=== PATIENT | female | born 1970 | race Caucasian/White ===

== ENCOUNTER → 2016-06-20 | Outpatient (CLI) | payer BC ==
[~2016-06-20] MED LIST: ADVIL DPS200 MG PO; ATIVAN-DPS0.5 MG PO; COLACE-DPS100 MG PO; FEOSOL-DPS325 MG PO; MOTRIN-DPS400 MG PO; PERCOCET 5-3251 EACH PO
== END | disposition home or self-care (01) ==
LOC: PTH.S 08:43
DX: Z01.812 Encounter for preprocedural laboratory examination (principal)

== ENCOUNTER 2016-06-30 05:36 | Observation (INO) | payer BC ==
[~2016-06-30] VITALS: Ht 172.7 cm; Wt 84.5 kg
[2016-07-02] MEDS ORDERED: ATIVAN-DPS0.5 MG PO (06:26)
[2016-07-02] MEDS ORDERED: PERCOCET 5-3251 EACH PO (06:27)
[2016-07-02] MEDS ORDERED: MOTRIN-DPS400 MG PO (06:27)
[2016-07-02] MEDS ORDERED: ADVIL DPS200 MG PO (06:27)
[2016-07-02] MEDS ORDERED: COLACE-DPS100 MG PO (06:27)
[2016-07-02] MEDS ORDERED: FEOSOL-DPS325 MG PO (06:27)
--- NOTE | 2016-07-28 09:14 | HP ---
ADMIT: 06/30/2016 RM/LOC: W.08 [facility] MR#: [id number] [address] [address] MEGHAN BARBER [address] [place] [address] Pre-OP History and Physical SEX: F AGE: 46 : 1970 DATE OF SERVICE: HISTORY OF PRESENT ILLNESS: The patient is a 46-year-old, 3, para 3, who has had worsening menorrhagia over the past several years. The patient presented with complaints of very heavy vaginal bleeding in March of 2016. The patient states that she often has to wear several pads at once and changes frequently less than every hour due to heavy flow. The patient also states that her cycles range from 21 to 28 days, and it has been worsening in the past year. The patient states that the bleeding had come to the point where she did not like to leave the house during her periods and so wishes to pursue treatment options. The patient had endometrial biopsy performed which was benign. An ultrasound of the pelvis was obtained, which showed the uterus measuring 11.2 x 7.0 x 8.2 cm with two dominant fibroids and one anterior 4.9 x 4.6 x 4.5, and a posterior fibroid 5.6 x 5.4 x 4.3. Endometrial stripe was 3 mm, and the ovaries appeared within normal limits. After reviewing treatment options in light of the 2 enlarged fibroids, decision was made to proceed with total laparoscopic hysterectomy. The patient had a family history of ovarian cancer in the mother and maternal aunt. Genetic testing was obtained using the EGEN genetic test and no known genes that were associated with ovarian cancer were found. PAST MEDICAL HISTORY: 1. History of menorrhagia. 2. History of positive HPV of the cervix. PAST SURGICAL HISTORY: Tonsillectomy. CURRENT MEDICATIONS: Ativan 0.5 mg as needed for sleep. ALLERGIES: NO KNOWN MEDICAL ALLERGIES. FAMILY HISTORY: Mother and maternal aunt with ovarian cancer and mother with rheumatoid arthritis. SOCIAL HISTORY: The patient is . She denies any alcohol, tobacco, or drug use. REVIEW OF SYSTEMS: GENERAL: The patient is feeling well. She does complain of fatigue. She denies any unexpected weight changes, fever, or chills. CARDIOVASCULAR: No chest pain, palpitations, or dyspnea with exertion. RESPIRATORY: No cough, wheeze, or shortness of breath. GASTROINTESTINAL: No nausea, vomiting, diarrhea, or constipation. FEMALE GENITOURINARY: Menorrhagia and irregular menstrual periods as noted above. She denies any urinary complaints. MUSCULOSKELETAL: No joint pain or muscle weakness. PHYSICAL EXAMINATION: VITAL SIGNS: Weight 183 pounds. Height 68 inches, BMI 27.5. Blood pressure 120/60. GENERAL: The patient is alert and oriented, in no acute distress. ADMIT: 06/30/2016 RM/LOC: W.08 [facility] MR#: [id number] [address] [place] [id number] MEGHAN BARBER [address] [place] [address] Pre-OP History and Physical SEX: F AGE: 46 : 1970 HEART: Regular rate and rhythm without murmurs, gallops, or rubs. LUNGS: Clear to auscultation bilaterally. ABDOMEN: Soft, nontender, and nondistended. Positive bowel sounds. EXTREMITIES: No edema. No calf tenderness. FEMALE GENITOURINARY: Normal external female genitalia. Normal Bartholin's, [place]'s, and urethral glands. The vagina appears estrogenized without lesions. Cervix appears normal. Bimanual examination reveals the uterus to be generally enlarged and adnexa is not palpable. ASSESSMENT: A 46-year-old female with menorrhagia with irregular cycle and 2 large uterine leiomyoma. PLAN: After reviewing treatment options, the patient desires definitive surgical management with hysterectomy. The risks, benefits, and alternatives of surgery including, but not limited to the risk of bleeding, possibly requiring blood transfusion, risk of infection, and the risk of injury to bowel or bladder have been discussed with the patient, and she agrees to proceed. Heavenly Mcqueen MD/ mer[place]ez JOB #: [id number] CC: Heavenly Mcqueen, Attending Physician Abril Matthews, Family Physician
--- NOTE | 2016-07-28 09:14 | OR ---
ADMIT: 06/30/2016 RM/LOC: 618 [facility] MR#: [id number] [facility] [address] [place], [place] [address] MEGHAN BARBER [address] [place] [address] Operative/Delivery Room Report SEX: F AGE: 46 : 1970 SURGERY DATE: 06/30/2016 SURGEON: Heavenly Mcqueen MD PROCEDURE: Total laparoscopic hysterectomy with bilateral salpingectomy and cystoscopy. DRUM OPERATOR: Page Shah MD PREOPERATIVE DIAGNOSES: 1. Menorrhagia. 2. Uterine leiomyoma. POSTOP DIAGNOSES: 1. Menorrhagia. 2. Uterine leiomyoma. FINDINGS: 1. Markedly enlarged uterus with multiple leiomyoma. 2. Normal appearing tubes and ovaries bilaterally. 3. Normal cystoscopy findings. ESTIMATED BLOOD LOSS: 550 mL. ANESTHESIA: General. COMPLICATIONS: None. INDICATIONS FOR PROCEDURE: The patient is a 46-year-old female who has had worsening menorrhagia. Endometrial biopsy was benign, however, the patient was noted to have multiple fibroids, 2 largest being approximately 5 cm in diameter, anteriorly and posteriorly. After reviewing treatment options, the patient desired definitive surgical management with hysterectomy. The risks, benefits, and alternatives of surgery have been reviewed and she wished to proceed. The patient also desired ovarian preservation at the time of surgery. DESCRIPTION OF PROCEDURE: The patient was taken to the operating room where general anesthesia was obtained without difficulty. The patient placed in dorsal lithotomy position, Yellofin stirrups, and prepped and draped in the usual sterile fashion. A Chaves catheter was placed prior to surgery. A weighted speculum was placed in the patient's vagina and a right angle retractor was used for visualization of the cervix. The anterior lip of the cervix was grasped with a single-tooth tenaculum. The cervix was noted to be quite large. The VCare device was inserted and the largest VCare cup was inserted around the cervix as well as possible. This was tightened down and left in place and all other instruments removed from the patient's vagina. Gloves were changed and attention was turned to the patient's abdomen. A 5-mm ADMIT: 06/30/2016 RM/LOC: 618 [facility] MR#: [id number] [address] [address] MEGHAN BARBER [address] [place] [address] Operative/Delivery Room Report SEX: F AGE: 46 : 1970 infraumbilical incision was made with scalpel after local infiltration of 0.25% Marcaine. A Veress needle was then inserted into this port. The patient's abdomen was insufflated to a patient pressure of 15 mmHg. Good gas flow and low patient opening pressure were noted with insufflation. The 5 mm trocar was then placed into this incision and intraperitoneal placement was assured with the camera. The pelvis was inspected. The patient was noted to have a very markedly enlarged uterus, which filled most of the pelvis. Tubes and ovaries bilaterally appeared normal. The patient's ureters were able to be identified and were noted to be away from the operating field. Attention was first turned to the patient's left side. The left tube was identified and followed out to its fimbriated end. The left mesosalpinx was sequentially coagulated and transected with the Thunderbeat device. At this point, the round ligament was able to be breeched, this was coagulated and transected with Thunderbeat device as well. The anterior leaf of the broad ligament was taken down and taken to the midline. In a similar fashion, the posterior leaf of the broad ligament was taken down as much as possible. The uterine vessels were identified and coagulated as much as possible. At this point, attention was then turned to the patient's right side. The right tube was identified and followed to the fimbriated end. The mesosalpinx was sequentially coagulated and transected using the Thunderbeat device. The round ligament was identified, coagulated, and transected as well. The anterior leaf of the broad ligament was then taken down to the midline as was the posterior leaf. At this point, the uterine vessels were able to be identified. They were then coagulated and transected. The anterior and posterior fibroids were noted to be in a position that made visualization of the cervix and the VCare cup rather difficult. The VCare cup was eventually located and the Thunderbeat device was used to sequentially amputate the cervix from the vaginal mucosa. In the process of this procedure, the cervix came out of VCare device. The decision was made to proceed to remove the rest of the vaginal tissue from the cervix vaginally. The patient was noted to be in the dorsal lithotomy position and the long weighted speculum was then placed in the posterior cul-de-sac. There was noted to be an area to the patient's right side of the vagina that was still attached to the cervix. This was clamped, transected, and suture ligated with 0 Vicryl with a series of Conrado clamps. The uterus was then completely removed from the vagina in this manner. The uterus was then able to be delivered with some difficulty through the vagina due to its very large size. At this point, the vaginal mucosa was then closed in a series of figure-of- eight stitches of 0 Vicryl. This was performed vaginally. Good hemostasis of the vaginal incision was noted. There was an area of the vaginal mucosa that had been transected with the Thunderbeat device and this was made hemostatic with a [id number] stitch of 0 Vicryl. At this point, attention was again turned to the patient's abdomen. All pedicles appeared hemostatic and the vaginal cuff appeared hemostatic as well. The 11 mm incision on the patient's right side was closed using the Antonio Deja device and a stitch of 0 Vicryl. The skin incisions were then closed with subcuticular 3-0 Vicryl. At ADMIT: 06/30/2016 /LOC: 618 [facility] MR#: [id number] [address] [address] MEGHAN BARBER [address] [place] [address] Operative/Delivery Room Report SEX: F AGE: 46 : 1970 this point, cystoscopy was performed. The bladder appeared intact without evidence of lesions. There was good outflow from the ureteral orifices bilaterally. There was noted to be an area of the bladder which appeared to be tucked in. No suture material was noted, however. The [id number] stitch that had been placed in the vaginal mucosa previously was cut, but at this area still appeared to be rather pulled down, however, again no suture material was noted. There was no rent in the bladder and so nothing further was done at this area. The bladder overall appeared intact without evidence of lesions. At this point, all instruments were removed from the patient's vagina. The patient tolerated the procedure well. All sponge and needle counts were correct. The patient returned to the recovery room in stable condition. Heavenly Mcqueen MD/ mercedez JOB #: [id number] CC: Heavenly Mcqueen, Attending Physician Abril Matthews, Family Physician
== END 2016-07-01 11:50 | disposition home or self-care (01) ==
LOC: WOR 05:36 → 6PED 05:36 → WOR 05:36 → 6PED 05:36
PROVIDERS: ADMIT Obstetrics & Gynecology
DX: D25.2 Subserosal leiomyoma of uterus (principal); A60.03 Herpesviral cervicitis; Z98.890 Other specified postprocedural states; Z79.899 Other long term (current) drug therapy; Z88.8 Allergy status to other drugs, medicaments and biological substances